=== PATIENT | female | born 1995 | race Caucasian/White ===

== ENCOUNTER 2020-03-16 12:49 | Emergency (ER) | payer OTHER ==
[~2020-03-16] VITALS: Ht 152.4 cm; Wt 81.8 kg
[2020-03-16] MEDS ORDERED: KETOROLAC TROMETHAMINE 30 MG/ML VIAL IM ONE (14:30)
[2020-03-16 15:01] LABS: BASOPHILS % (AUTO) 0.4 % (0.0-2.0); EOSINOPHILS % (AUTO) 1.1 % (1.0-6.0); HEMATOCRIT 35.1 % (36-46); HEMOGLOBIN 11.8 g/dL (12.0-16.0); LYMPHOCYTES # (AUTO) 1.9 K/uL (1.0-4.8); LYMPHOCYTES % (AUTO) 20.9 % (22.0-44.0); MEAN CORPUSCULAR HEMOGLOBIN 27.3 pg (26.0-34.0); MEAN CORPUSCULAR HGB CONC 33.5 G/dL (31.0-37.0); MEAN CORPUSCULAR VOLUME 81 fL (80-100); MONOCYTES # (AUTO) 0.6 K/uL (0.1-1.0); MONOCYTES % (AUTO) 6.9 % (2.0-9.0); NEUTROPHILS # (AUTO) 6.4 K/uL (1.8-7.7); NEUTROPHILS % (AUTO) 70.7 % (40.0-70.0); PLATELET COUNT (AUTO) 318 K/uL (150-450); RED BLOOD CELL COUNT(AUTO) 4.31 MIL/uL (4.00-5.20); RED CELL DISTRIBUTION WIDTH 14.5 % (11.5-14.5)
[2020-03-16 15:17] LABS: ANION GAP 4 mmol/L (8-16); CARBON DIOXIDE 31 mmol/L (22-29); CHLORIDE 107 mmol/L (98-107); GLOMERULAR FILTR. RATE CALC > 60 mL/min (>60); GLUCOSE,RANDOM 92 mg/dL (70-110); POTASSIUM 3.8 mmol/L (3.5-5.1); SODIUM SERUM 142 mmol/L (136-145); UREA NITROGEN, BLOOD 10 mg/dL (7-18)
[2020-03-16 15:33] VITALS: BP 130/70
== END 2020-03-16 16:07 | disposition home or self-care (01) ==
LOC: EMS 12:49
DX: R51.9 Headache, unspecified (principal); R00.2 Palpitations
CPT/HCPCS: 36415; 80048; 85025; 93005; 96372; 99284; J1885